=== PATIENT | male | born 1965 | race African-American/Black ===

== ENCOUNTER → 2017-08-31 | Outpatient (CLI) | payer OTHER | END | disposition home or self-care (01) | LOC: LABWHC1 13:54 | PROVIDERS: ATTEND Nurse Practitioner Family | DX: N17.9 Acute kidney failure, unspecified (principal) | CPT/HCPCS: 36415; 82565 ==

== ENCOUNTER → 2017-09-18 | Outpatient (CLI) | payer OTHER ==
--- NOTE | 2017-09-19 00:10 | MR ---
EXAMINATION TYPE: MR pelvis wo/w con DATE OF EXAM: 09/18/2017 COMPARISON: NONE HISTORY: Pelvic pain CONTRAST: Standard multiplanar, multisequence MRI departmental protocol utilizing 9 mL intravenous Gadavist felice olinium contrast. FINDINGS: The proximal femurs and hip joints are intact. Sacroiliac joints appear normal. I see no fo jarred bone destruction. There is no evidence of a fracture. There is no free fluid in the pelvis. There is artifact obscuring detail on the left side of the pelvis. There is no evidence of a pelvic mass. Bladder distends smoothly. There is no evidence of a prostate mass. There is a 1.5 cm wedge-shaped area of increased signal on the T2 images on the anterior inferior asp ect of the L4 vertebral body. There is no significant loss of height. This could be mild bone edema. IMPRESSION: No evidence of pelvic mass. There is possible edema in the anterior L4 vertebral body that could rela te to a stress fracture. No evidence of a pelvic mass. A bone scan would be helpful for further evalu ation if a fracture is suspected..
== END | disposition home or self-care (01) ==
LOC: RADMRIMAIN 20:57
PROVIDERS: ATTEND Family Medicine
DX: R19.00 Intra-abdominal and pelvic swelling, mass and lump, unspecified site (principal)
CPT/HCPCS: 72197; A9581

== ENCOUNTER → 2017-09-23 | Outpatient (CLI) | payer OTHER ==
[2017-09-23 14:38] LABS: Anion Gap 9 mmol/L; Blood Urea Nitrogen 7 mg/dL (9-20); Carbon Dioxide 32 mmol/L (22-30); Chloride 103 mmol/L (98-107); Potassium 3.4 mmol/L (3.5-5.1); Sodium 144 mmol/L (137-145)
[2017-09-23 14:55] LABS: HCT 42.8 % (39.0-53.0); HGB 13.9 gm/dL (13.0-17.5); MCH 26.6 pg (25.0-35.0); MCHC 32.4 g/dL (31.0-37.0); MCV 82.1 fL (80.0-100.0); Mean Platelet Volume 6.7; Platelet Count 261 k/uL (150-450); RBC 5.22 m/uL (4.30-5.90); RDW 14.5 % (11.5-15.5); WBC 6.5 k/uL (3.8-10.6)
== END | disposition home or self-care (01) ==
LOC: LABPAT 13:54
PROVIDERS: ATTEND Internal Medicine Cardiovascular Disease
DX: Z01.812 Encounter for preprocedural laboratory examination (principal); R07.2 Precordial pain
CPT/HCPCS: 36415; 80051; 82565; 84520; 85027

== ENCOUNTER 2017-10-06 07:40 | Day surgery (SDC) | payer OTHER ==
[2017-10-05 13:14] VITALS: BMI 30.4
[~2017-10-06 07:40] MED LIST: ALPRAZolam 0.25 MG TAB PO PRN; ASPIRIN 325 MG TAB PO ONE; SODIUM CHLORIDE 0.9% 1,000 ML in EMPTY BAG 1 BAG IV ONE
[2017-10-06 08:01] VITALS: TEMP 98.4
[2017-10-06] MEDS ORDERED: LIDOCAINE 2% INJ 20 MG/ML (20 ML MDV) ONE (09:18)
[2017-10-06] MEDS ORDERED: MIDAZOLAM 2 MG/2 ML VIAL ONE (09:21)
[2017-10-06] MEDS ORDERED: MIDAZOLAM 2 MG/2 ML VIAL IV ONE (09:22)
[2017-10-06] MEDS ORDERED: LIDOCAINE 2% INJ 20 MG/ML SQ ONE (09:25)
[2017-10-06] MEDS ORDERED: IOPAMIDOL-370 125ML BTL INJ ONE (09:37)
[2017-10-06] MEDS ORDERED: RX INFO: IV CONTRAST WAS GIVEN 1 EACH MISC MISCELLANE PRN (09:39)
[2017-10-06] MEDS ORDERED: SODIUM CHLORIDE 0.9% 1,000 ML IV SCH (09:45)
--- NOTE | 2017-10-06 10:55 | CC ---
CARDIAC CATHETERIZATION REPORT INDICATION: Chest pain with abnormal stress test. PROCEDURE NOTE: After obtaining informed consent, left heart catheterization and coronary angiogram were performed via the right femoral artery using standard Amanda catheters. Patient tolerated the procedure well without any obvious immediate complications. A femoral angiogram was performed and Angio-Seal was deployed for hemostasis. Patient received moderate conscious sedation and the total sedation time was 13 minutes. FINDINGS: 1. HEMODYNAMICS: Left ventricular end-diastolic pressure is 12 to 14 mm, there is no significant gradient across aortic valve. 2. LEFT VENTRICULOGRAM: Left ventriculogram is not performed. 3. ANGIOGRAPHIC DATA: 4. Left main coronary artery is a normal-sized vessel and is free of stenosis. Divides into left anterior descending coronary artery and circumflex coronary artery. LAD and its branches, circumflex coronary artery and its branches are free of significant stenosis. LAD shows a mild atherosclerotic plaque in its mid to distal portion. 5. Right coronary artery is a large codominant vessel and is free of significant stenosis. LAD and circumflex coronary artery have almost separate origins. CONCLUSION: Mild nonobstructive coronary artery disease involving left anterior descending coronary artery. PLAN: Patient's chest discomfort and the abnormal stress test are probably noncardiac in origin and his management is going to be in the form of aggressive risk factor modification and continued medical therapy. MMODL / IJN: [id number] /
[2017-10-06 11:42] VITALS: PULSE 48
[2017-10-06 13:02] VITALS: BP 119/77; RESP 18
== END 2017-10-06 14:23 | disposition home or self-care (01) ==
LOC: CATHCVL 07:40
PROVIDERS: ATTEND Internal Medicine Cardiovascular Disease
DX: I25.10 Atherosclerotic heart disease of native coronary artery without angina pectoris (principal); I10 Essential (primary) hypertension; Z79.899 Other long term (current) drug therapy; Z79.82 Long term (current) use of aspirin
CPT/HCPCS: 93458; C1760; C1894; C1769; J2001; J2250; Q9967

== ENCOUNTER 2017-10-14 14:59 | Emergency (ER) | payer OTHER ==
--- NOTE | 2017-10-14 15:57 | ED ---
General Adult HPI - General Chief complaint: Recheck/Abnormal Lab/Rx Stated complaint: PAIN IN CATH SITE Time Seen by Provider: 10/14/17 15:07 Source: patient, RN notes reviewed Mode of arrival: ambulatory Limitations: no limitations - History of Present Illness Initial comments: 51-year-old male presents emergency Department chief complaint right inguinal/ groin pain. Patient states that he had a heart cath on 10/06/[address] Stock. Patient states that he developed pain today felt that he may have ordered on it but laid down to get him go away but it did not improve. Patient denies any increased swelling or discoloration. Denies any numbness or tingling to his leg. Patient states that he has not tried taking anything for the pain so far. Patient denies chest pain, shortness breath, nausea, vomiting, diarrhea, constipation, dysuria, fever or chills. He states that his heart cath had no significant findings. - Related Data Home Medications Medication Instructions Recorded Confirmed Lisinopril 40 mg PO DAILY 10/18/15 10/14/17 amLODIPine [Norvasc] 10 mg PO DAILY 10/18/15 10/14/17 Metoprolol Succinate (ER) [Toprol 100 mg PO DAILY 06/10/16 10/14/17 Xl] ALPRAZolam [Xanax] 0.5 mg PO Q8HR PRN 10/05/17 10/14/17 Atorvastatin [Lipitor] 10 mg PO DAILY 10/05/17 10/14/17 HYDROcodone/APAP 10-325MG [[place] 1 tab PO TID PRN 10/05/17 10/14/17 10-325] Pregabalin [Lyrica] 200 mg PO TID 10/05/17 10/14/17 Tamsulosin [Flomax] 0.4 mg PO DAILY 10/05/17 10/14/17 cloNIDine HCL [Catapres] 0.3 mg PO DAILY 10/14/17 10/14/17 Allergies Allergy/AdvReac Type Severity Reaction Status Date / Time No Known Allergies Allergy Verified 10/14/17 15:31 Review of Systems ROS Statement: Those systems with pertinent positive or pertinent negative responses have been documented in the HPI. ROS Other: All systems not noted in ROS Statement are negative. Past Medical History Past Medical History: Hypertension Additional Past Medical History / Comment(s): kidney stones History of Any Multi-Drug Resistant Organisms: None Reported Past Surgical History: Heart Catheterization, Orthopedic Surgery Additional Past Surgical History / Comment(s): Stress fracture in L4, heart cath in [id number] not place any stents. Past Psychological History: No Psychological Hx Reported Smoking Status: Never smoker General Exam Limitations: no limitations General appearance: alert, in no apparent distress Respiratory exam: Present: normal lung sounds bilaterally. Absent: respiratory distress, wheezes, rales, rhonchi, stridor Cardiovascular Exam: Present: regular rate, normal rhythm, normal heart sounds. Absent: systolic murmur, diastolic murmur, rubs, gallop, clicks GI/Abdominal exam: Present: soft, normal bowel sounds. Absent: distended, tenderness, guarding, rebound, rigid Extremities exam: Present: other (Right lower extremity pedal pulses equal bilaterally, there is no discoloration no change in warmth. There is tenderness to the right inguinal/groin region, normal pulses palpable no other areas of pulsatile mass) Course Vital Signs 10/14/17 15:01 Temperature 98.0 F Pulse Rate 89 Respiratory 18 Rate Blood Pressure 177/100 O2 Sat by Pulse 99 Oximetry Medical Decision Making - Medical Decision Making 51-year-old male present emergency department for right inguinal/groin pain. Patient had ultrasound to rule out pseudoaneurysm there is no evidence of pseudoaneurysm. Patient has good neurovascular status, equal pedal pulses. There is no bulging or obvious evidence of hernia at this time. Patient may have just strained his right groin. Patient will be discharged and he has a follow-up appointment tomorrow. Return parameters discussed. Disposition Clinical Impression: Rt groin pain Disposition: HOME SELF-CARE Condition: Stable Instructions: Groin Pain (ED) Additional Instructions: Please return to the Emergency Department if symptoms worsen or any other concerns. Referrals: Rishi Reyes MD [Primary Care Provider] - 1-2 days Time of Disposition: 16:38
--- NOTE | 2017-10-14 16:26 | US ---
EXAMINATION TYPE: US lower ext pseudo artery RT DATE OF EXAM: 10/14/2017 COMPARISON: NONE CLINICAL HISTORY: 51 year-old male with recent heart cath, rule out pseudoaneurysm. EXAM PERFORMED: Grayscale and color Doppler duplex imaging performed of the groin, post cardiac tom ter to assess for pseudoaneurysm. SIDE PERFORMED: Right Heart cath October 06, 2017. Technique: Color and Waveform Doppler performed to assess for the presence of pseudoaneurysm; FINDINGS: Salesperson Driver notes: There is NO ultrasound evidence of a pseudoaneurysm. There is NO evidence of AV shunting. There is NO fluid collection present. IMPRESSION: No sonographic evidence for pseudoaneurysm in the right groin.
[2017-10-14 17:03] VITALS: BP 142/95; PULSE 81; RESP 16; TEMP 97.9
== END 2017-10-14 17:12 | disposition home or self-care (01) ==
LOC: EC 14:59
DX: R10.31 Right lower quadrant pain (principal); I10 Essential (primary) hypertension; Z95.818 Presence of other cardiac implants and grafts; Z79.899 Other long term (current) drug therapy
CPT/HCPCS: 93975; 99283

== ENCOUNTER → 2017-11-25 | Outpatient (CLI) | payer OTHER ==
--- NOTE | 2017-11-25 16:32 | NM ---
EXAMINATION TYPE: NM bone scan whole body DATE OF EXAM: 11/25/2017 COMPARISON: Left knee dated 11/06/[address] pelvis 05/11/2017. HISTORY: M51.0, low back pain Delayed whole-body scanning was performed following the injection of 24.4 mCi Tc 99m MDP. Images acq uired 4 hours post injection. FINDINGS: Multiple small foci of radiotracer uptake present over the left groin region are possibly due to urin e contamination. Soft tissue uptake otherwise appears normal. Uptake within the feet, knees, hands, w rists, elbows, and shoulders, sternoclavicular joints is likely degenerative. No areas of uptake sugg esting metastatic disease. Uptake in the maxillary and mandible may be due to periodontal disease. Up take in the pubic symphysis may correlate to old trauma. IMPRESSION: Probable degenerative changes.
== END | disposition home or self-care (01) ==
LOC: RADNMMAIN 10:05
PROVIDERS: ATTEND Family Medicine
DX: M51.06 Intervertebral disc disorders with myelopathy, lumbar region (principal)
CPT/HCPCS: 78306; A9503

== ENCOUNTER → 2017-11-30 | Outpatient (CLI) | payer OTHER ==
[~2017-11-30] MED LIST changes: -ALPRAZolam 0.25 MG TAB PO PRN; -ASPIRIN 325 MG TAB PO ONE; +DIPH,PERTUS(ACELL)TETVAC-LF 0.5 ML VIAL IM ONE; -SODIUM CHLORIDE 0.9% 1,000 ML in EMPTY BAG 1 BAG IV ONE
[2017-11-30 12:17] VITALS: BP 157/97; PULSE 57; RESP 16; TEMP 98.2
== END | disposition home or self-care (01) ==
LOC: PROCWHC3 11:30
PROVIDERS: ATTEND Family Medicine
DX: Z23 Encounter for immunization (principal)
CPT/HCPCS: 90715; 96372

== ENCOUNTER → 2017-11-30 | Outpatient (CLI) | payer OTHER ==
[2017-11-30 11:37] LABS: Basophils % (A) 1 %; Eosinophils # (A) 0.3 k/uL (0-0.7); Eosinophils % (A) 5 %; HCT 41.1 % (39.0-53.0); HGB 13.2 gm/dL (13.0-17.5); Lymphocytes # (A) 2.3 k/uL (1.0-4.8); Lymphocytes % (A) 40 %; MCH 26.2 pg (25.0-35.0); MCHC 32.1 g/dL (31.0-37.0); MCV 81.6 fL (80.0-100.0); Mean Platelet Volume 6.4; Monocytes # (A) 0.4 k/uL (0-1.0); Monocytes % (A) 6 %; Neutrophils # (A) 2.7 k/uL (1.3-7.7); Neutrophils % (A) 47 %; Platelet Count 226 k/uL (150-450); RBC 5.03 m/uL (4.30-5.90); RDW 14.3 % (11.5-15.5); WBC 5.8 k/uL (3.8-10.6)
[2017-11-30 11:58] LABS: ALT 39 U/L (21-72); AST 35 U/L (17-59); Alkaline Phosphatase 47 U/L (38-126); Anion Gap 10 mmol/L; Blood Urea Nitrogen 9 mg/dL (9-20); Calcium 9.3 mg/dL (8.4-10.2); Carbon Dioxide 32 mmol/L (22-30); Chloride 102 mmol/L (98-107); Cholesterol 139 mg/dL (<200); Glucose 105 mg/dL (74-99); HDL Cholesterol 47 mg/dL (40-60); LDL Cholesterol,Calculated 68 mg/dL (0-99); Potassium 3.5 mmol/L (3.5-5.1); Sodium 144 mmol/L (137-145); Total Bilirubin 0.3 mg/dL (0.2-1.3); Total Protein 6.8 g/dL (6.3-8.2); Triglycerides 121 mg/dL (<150)
[2017-11-30 17:12] LABS: Hepatitis B Core IgM Non-Reactive (Non-Reactive)
[2017-11-30 17:13] LABS: Hepatitis A Antibody IgM Non-Reactive (Non-Reactive)
[2017-11-30 18:22] LABS: HIV AB P24 Non-Reactive (Non-Reactive); HIV P24 AG Non-Reactive (Non-Reactive)
[2017-12-01 15:21] LABS: C. trachomatis,PCR Negative (Neg,Equiv); Chlamydia trachomatis Source Urine; N. gonorrhoeae,PCR Negative (Neg,Equiv); Neisseria Source Urine
== END | disposition home or self-care (01) ==
LOC: LABWHC1 10:54
PROVIDERS: ATTEND Family Medicine
DX: E78.5 Hyperlipidemia, unspecified (principal); I10 Essential (primary) hypertension; E03.9 Hypothyroidism, unspecified; D64.9 Anemia, unspecified; Z20.2 Contact with and (suspected) exposure to infections with a predominantly sexual mode of transmission
CPT/HCPCS: 36415; 80053; 80061; 80074; 84443; 85025; 86694; 86695; 86696; 86780; 87390; 87491; 87591

== ENCOUNTER → 2018-01-25 | Outpatient (CLI) | payer OTHER ==
[2018-01-25 19:38] LABS: Rheumatoid Factor 10 IU/mL (0-15)
== END | disposition home or self-care (01) ==
LOC: LABWHC1 12:19
PROVIDERS: ATTEND Nurse Practitioner Family
DX: M25.50 Pain in unspecified joint (principal)
CPT/HCPCS: 36415; 85652; 86038; 86431

== ENCOUNTER → 2018-02-09 | Outpatient (CLI) | payer OTHER ==
--- NOTE | 2018-02-09 19:18 | CT ---
EXAMINATION TYPE: CT chest wo con DATE OF EXAM: 02/09/2018 COMPARISON: None HISTORY: Shortness of breath, cough X [address] DLP: 397.1 mGycm, Automated exposure control for dose reduction was used. CONTRAST: Performed injected with 0 mL of Isovue 300. TECHNIQUE: Axial images were obtained at 5 mm thick sections. Reconstructed images are reviewed on [employer] computer in the coronal plane. FINDINGS: Portion of the thyroid visualized is normal. There is a 1.0 cm lymph node in the left axill a. No suspicious lung nodules or focal infiltrates are present. No enlarged mediastinal or hilar adenopathy is evident. The ascending aorta diameter at the level o f the main pulmonary artery is 3.7 cm. The main pulmonary artery diameter at the bifurcation is 2.[address] sections are obtained through the upper abdomen. Abdomen is essentially unremarkable. IMPRESSIONS: 1. Normal Chest CT.
== END | disposition home or self-care (01) ==
LOC: RADCTMAIN 07:13
PROVIDERS: ATTEND Family Medicine
DX: R06.02 Shortness of breath (principal)
CPT/HCPCS: 71250

== ENCOUNTER 2018-08-25 20:59 | Emergency (ER) | payer OTHER ==
--- NOTE | 2018-08-25 21:33 | ED ---
Back Pain [facility] - General Chief Complaint: Back Pain/Injury Stated Complaint: Back injury Time Seen by Provider: 08/25/18 21:11 Source: patient Limitations: no limitations - History of Present Illness Initial Comments: This patient is a 52-year-old man who states that yesterday in the early afternoon he was helping to lift some rales floor and felt a pop in his low back. He states that since that time he has been having some right-sided low back pain. He describes it as an aching or catching sensation typically worse when he tries to straighten up or stand. He has not noted relieving factors other than it may be a little bit better with the Lyrica that he takes. He rates it constant, about 6 out of 10. Patient has not had any associated neurologic symptoms. No changes in bladder or bowel function. No weakness or numbness. No saddle anesthesia. MD Complaint: back pain Onset/Timin -: hour(s) Similar Symptoms Previously: No Place: other Radiation: none Severity: moderate Severity scale (1-10): 6 Quality: aching Consistency: constant Improves With: none Worsens With: other (Straitening up) Context: while lifting Associated Symptoms: denies other symptoms Treatments Prior to Arrival: other (Lyrica) - Related Data Home Medications Medication Instructions Recorded Confirmed Lisinopril 40 mg PO DAILY 10/18/15 08/25/18 amLODIPine [Norvasc] 10 mg PO DAILY 10/18/15 08/25/18 Metoprolol Succinate (ER) [Toprol 100 mg PO DAILY 06/10/16 08/25/18 Xl] Atorvastatin [Lipitor] 10 mg PO DAILY 10/05/17 08/25/18 HYDROcodone/APAP 10-325MG [[place] 1 tab PO TID PRN 10/05/17 08/25/18 10-325] Pregabalin [Lyrica] 200 mg PO TID 10/05/17 08/25/18 Tamsulosin [Flomax] 0.4 mg PO DAILY 10/05/17 08/25/18 cloNIDine HCL [Catapres] 0.3 mg PO DAILY 10/14/17 08/25/18 Cyclobenzaprine [Flexeril] 10 mg PO HS 11/30/17 08/25/18 Cetirizine HCl [Zyrtec] 10 mg PO DAILY 08/25/18 08/25/18 Previous Rx's Medication Instructions Recorded Ibuprofen 800 mg PO TID #20 tablet 08/25/18 Methocarbamol [Robaxin-750] 750 mg PO TID PRN #30 tablet 08/25/18 Allergies Allergy/AdvReac Type Severity Reaction Status Date / Time No Known Allergies Allergy Verified 08/25/18 21:48 Review of Systems ROS Statement: Those systems with pertinent positive or pertinent negative responses have been documented in the HPI. ROS Other: All systems not noted in ROS Statement are negative. Constitutional: Denies: fever, chills, weakness Respiratory: Denies: cough, dyspnea Cardiovascular: Denies: chest pain, palpitations, edema Gastrointestinal: Denies: abdominal pain, vomiting, diarrhea, constipation Genitourinary: Denies: dysuria, testicular pain Musculoskeletal: Reports: as per HPI, back pain Skin: Denies: rash Neurological: Denies: weakness, numbness, paresthesias Past Medical History Past Medical History: Hypertension Additional Past Medical History / Comment(s): kidney stones History of Any Multi-Drug Resistant Organisms: None Reported Past Surgical History: Heart Catheterization, Orthopedic Surgery Additional Past Surgical History / Comment(s): Stress fracture in L4, heart cath in [id number] not place any stents. Past Psychological History: No Psychological Hx Reported Smoking Status: Never smoker Past Alcohol Use History: None Reported Past Drug Use History: None Reported General Exam Limitations: no limitations General appearance: alert, in no apparent distress Head exam: Present: atraumatic Neck exam: Present: normal inspection, full ROM Respiratory exam: Present: normal lung sounds bilaterally. Absent: respiratory distress, wheezes, rales, rhonchi, stridor Cardiovascular Exam: Present: regular rate, normal rhythm, normal heart sounds. Absent: systolic murmur, diastolic murmur, rubs, gallop GI/Abdominal exam: Present: soft. Absent: distended, tenderness, guarding, rebound, pulsatile mass Extremities exam: Present: normal inspection, normal capillary refill. Absent: pedal edema, calf tenderness Back exam: Present: normal inspection, paraspinal tenderness (Right lumbar). Absent: CVA tenderness (R), CVA tenderness (L), vertebral tenderness Neurological exam: Present: alert, normal gait, reflexes normal Skin exam: Present: warm, dry, intact, normal color. Absent: rash Course Vital Signs 08/25/18 21:01 Temperature 98.2 F Pulse Rate 80 Respiratory 20 Rate Blood Pressure 134/77 O2 Sat by Pulse 100 Oximetry Disposition Clinical Impression: Strain of lumbar region Disposition: HOME SELF-CARE Condition: Fair Instructions (If sedation given, give patient instructions): Acute Low Back Pain (ED) Prescriptions: Ibuprofen 800 mg PO TID #20 tablet Methocarbamol [Robaxin-750] 750 mg PO TID PRN #30 tablet PRN Reason: pain Is patient prescribed a controlled substance at d/c from ED?: No Referrals: Rishi Reyes MD [Primary Care Provider] - 1-2 days
--- NOTE | 2018-08-25 22:00 | XR ---
EXAMINATION TYPE: XR lumbar spine 2 or 3V DATE OF EXAM: 08/25/2018 COMPARISON: NONE HISTORY: Back pain TECHNIQUE: 3 views FINDINGS: There is narrowing at L4-5 disc space with spurring. I see no fracture. Sacroiliac joints a re intact. There is no compression fracture. IMPRESSION: Mild spondylosis at L4-5. No fracture seen.
[2018-08-25 23:07] VITALS: BP 128/91; PULSE 70; RESP 17; TEMP 97.6
== END 2018-08-25 23:07 | disposition home or self-care (01) ==
LOC: EC 20:59
DX: S39.012A Strain of muscle, fascia and tendon of lower back, initial encounter (principal); I10 Essential (primary) hypertension; Z95.818 Presence of other cardiac implants and grafts; Z87.81 Personal history of (healed) traumatic fracture; Z79.899 Other long term (current) drug therapy; X50.0XXA Overexertion from strenuous movement or load, initial encounter; Y93.89 Activity, other specified
CPT/HCPCS: 72100; 99283

== ENCOUNTER → 2018-09-09 | Outpatient (CLI) | payer OTHER ==
[2018-09-09 14:20] LABS: Basophils % (A) 1 %; Eosinophils # (A) 0.5 k/uL (0-0.7); Eosinophils % (A) 10 %; HCT 42.3 % (39.0-53.0); HGB 13.5 gm/dL (13.0-17.5); Lymphocytes # (A) 1.8 k/uL (1.0-4.8); Lymphocytes % (A) 40 %; MCH 26.6 pg (25.0-35.0); MCHC 31.8 g/dL (31.0-37.0); MCV 83.7 fL (80.0-100.0); Monocytes # (A) 0.2 k/uL (0-1.0); Monocytes % (A) 6 %; Neutrophils # (A) 1.8 k/uL (1.3-7.7); Neutrophils % (A) 40 %; Platelet Count 242 k/uL (150-450); RBC 5.05 m/uL (4.30-5.90); RDW 14.4 % (11.5-15.5); WBC 4.4 k/uL (3.8-10.6)
[2018-09-09 18:47] LABS: Albumin 4.2 g/dL (3.80-4.90); Albumin/Globulin Ratio 1.62 (1.60-3.17); Anion Gap 6.1 mmol/L (4.00-12.00); Calcium 8.7 mg/dL (8.7-10.3); Carbon Dioxide 27.9 mmol/L (21.6-31.8); Globulin 2.6 g/dL (1.6-3.3); Potassium 3.9 mmol/L (3.5-5.5); Total Bilirubin 0.4 mg/dL (0.3-1.2); Total Protein 6.8 g/dL (6.2-8.2)
== END ==
LOC: LABWHC1 13:46
PROVIDERS: ATTEND Family Medicine
DX: E78.5 Hyperlipidemia, unspecified (principal); I10 Essential (primary) hypertension; E03.9 Hypothyroidism, unspecified; D64.9 Anemia, unspecified; N41.9 Inflammatory disease of prostate, unspecified
CPT/HCPCS: 36415; 80053; 80061; 84153; 84443; 85025

== ENCOUNTER → 2018-09-16 | Outpatient (CLI) | payer OTHER ==
--- NOTE | 2018-09-17 04:01 | MR ---
EXAMINATION TYPE: MR foot LT wo/w con DATE OF EXAM: 09/16/2018 COMPARISON: None HISTORY: plantar fascial fibromatosis, left foot CONTRAST: Standard multiplanar, multisequence MRI departmental protocol utilizing 10 mL intravenous Gadavist ga dolinium contrast. FINDINGS: The metatarsals appear intact. I see no focal bone destruction. There is a marker on the me dial aspect of the midfoot in the area of concern on the plantar aspect. There is a 3 x 1 cm area of thickening of the plantar fascia on the medial aspect of the midfoot. This has intermediate signal on the T1 images. The contrast images show mild pathologic enhancement. There is no significant fluid c omponent of the mass. I see no focal bony destructive process. There is slight increased signal in the soft tissues around the fourth and fifth MP joints. This coul d relate to stress related phenomenon and abnormal gait. IMPRESSION: There is an elongated soft tissue enhancing solid mass on the plantar aspect of the medial midfoot wi th benign shape. This is consistent with fibromatosis. Mild edema on the fourth and fifth MP joint region consistent with altered gait.
== END ==
LOC: RADMRIMAIN 08:51
PROVIDERS: ATTEND Podiatrist Foot & Ankle Surgery
DX: M72.2 Plantar fascial fibromatosis (principal); M25.474 Effusion, right foot
CPT/HCPCS: 73720; A9585

== ENCOUNTER → 2018-10-08 | Outpatient (CLI) | payer OTHER ==
--- NOTE | 2018-10-10 10:20 | MR ---
EXAMINATION TYPE: MR lumbar spine wo/w con DATE OF EXAM: 10/08/2018 COMPARISON: NONE HISTORY: Back pain x 2 years TECHNIQUE: T1 and T2 axial and sagittal images of the lumbar spine are submitted. FINDINGS: There is no abnormal signal seen within the visualized spinal cord or paraspinal soft tissu es. At L1-2 there is no disc herniation or canal stenosis. No foraminal encroachment At L2-3 there is no disc herniation or canal stenosis. No foraminal encroachment. Mild facet arthropa thy. At L3-4 there is right paracentral disc bulging extending laterally to the right. No neural foraminal encroachment or canal stenosis. Very mild effacement of thecal sac. At L4-5 there is degenerative disc disease with Schmorl's node central broad-based disc protrusion wi th mild effacement of thecal sac but no central stenosis. Mild right-sided foraminal encroachment. Fa cet arthropathy. At L5-S1 there is facet arthropathy but no canal stenosis or foraminal encroachment. No disc herniati on. IMPRESSION: 1. Degenerative disc disease L4-L5 with central disc protrusion and mild right-sided foraminal encroa chment. 2. Mild right paracentral lateral disc bulging or small protrusion L3-L4. 3. Multilevel mild facet arthropathy.
== END ==
LOC: RADMRIMAIN 20:54
PROVIDERS: ATTEND Family Medicine
DX: M51.06 Intervertebral disc disorders with myelopathy, lumbar region (principal); M46.86 Other specified inflammatory spondylopathies, lumbar region
CPT/HCPCS: 72158; A9585

== ENCOUNTER → 2018-10-26 | Outpatient (CLI) | payer OTHER ==
[2018-10-26 16:22] LABS: Basophils % (A) 0 %; Eosinophils # (A) 0.4 k/uL (0-0.7); Eosinophils % (A) 6 %; HCT 43.8 % (39.0-53.0); HGB 13.8 gm/dL (13.0-17.5); Lymphocytes # (A) 1.8 k/uL (1.0-4.8); Lymphocytes % (A) 28 %; MCH 26.4 pg (25.0-35.0); MCHC 31.4 g/dL (31.0-37.0); MCV 83.9 fL (80.0-100.0); Mean Platelet Volume 6.6; Monocytes # (A) 0.3 k/uL (0-1.0); Monocytes % (A) 5 %; Neutrophils # (A) 3.8 k/uL (1.3-7.7); Neutrophils % (A) 59 %; Platelet Count 288 k/uL (150-450); RBC 5.22 m/uL (4.30-5.90); RDW 15.1 % (11.5-15.5); WBC 6.5 k/uL (3.8-10.6)
[2018-10-27 01:03] LABS: Albumin 4.4 g/dL (3.80-4.90); Albumin/Globulin Ratio 1.91 (1.60-3.17); Anion Gap 12.4 mmol/L (4.00-12.00); Calcium 9.4 mg/dL (8.7-10.3); Carbon Dioxide 29.6 mmol/L (21.6-31.8); Globulin 2.3 g/dL (1.6-3.3); LDL Cholesterol,Calculated 89.2 mg/dL (0.0-131.0); Potassium 3.5 mmol/L (3.5-5.5); Total Bilirubin 0.6 mg/dL (0.2-1.2); Total Protein 6.7 g/dL (6.2-8.2); VLDL Calculation 16.8 mg/dL (5.00-40.00)
[2018-10-27 01:05] LABS: Hepatitis A Antibody IgM Non-Reactive (Non-Reactive); Hepatitis B Core IgM Non-Reactive (Non-Reactive)
[2018-10-27 01:48] LABS: HIV 1 AB Non-Reactive (Non-Reactive); HIV AB P24 Non-Reactive (Non-Reactive); HIV P24 AG Non-Reactive (Non-Reactive)
[2018-10-27 07:03] LABS: Herpes simplex IgG I Ab 2.92 (< or = 0.90)
[2018-10-27 14:26] LABS: C. trachomatis,PCR Negative (Neg,Equiv); Chlamydia trachomatis Source Urine; N. gonorrhoeae,PCR Negative (Neg,Equiv); Neisseria Source Urine
== END ==
LOC: LABWHC1 14:48
PROVIDERS: ATTEND Nurse Practitioner Family
DX: E78.5 Hyperlipidemia, unspecified (principal); I10 Essential (primary) hypertension; E03.9 Hypothyroidism, unspecified; D64.9 Anemia, unspecified; N41.9 Inflammatory disease of prostate, unspecified; E29.1 Testicular hypofunction; Z20.2 Contact with and (suspected) exposure to infections with a predominantly sexual mode of transmission
CPT/HCPCS: 36415; 80053; 80061; 80074; 82040; 84153; 84270; 84403; 84443; 85025; 86694; 86695; 86696; 86780; 87390; 87491; 87591

== ENCOUNTER → 2018-12-03 | Outpatient (CLI) | payer OTHER ==
--- NOTE | 2018-12-03 10:16 | MR ---
EXAMINATION TYPE: MR knee LT wo con DATE OF EXAM: 12/03/2018 COMPARISON: Plain film 11/17/2018 HISTORY: Left knee pain TECHNIQUE: Multiplanar, multisequence imaging of the knee is performed without IV contrast. FINDINGS: MEDIAL MENISCUS: Posterior horn of the medial meniscus shows some increased signal. Findings may be d egenerative. A clear communication with the articular surface is not identified with certainty LATERAL MENISCUS: Anterior and posterior horns are intact without tear. CRUCIATE LIGAMENTS: The anterior and posterior cruciate ligaments are intact and unremarkable. COLLATERAL LIGAMENTS: The medial collateral ligament and lateral collateral ligament complex are inta ct and increased signal in the popliteus tendon suggests tendinosis. EXTENSOR MECHANISM: Quadriceps tendon is somewhat irregular in contour and shows some increased signa l possibly due to some degenerative signal EFFUSION: Minimal effusion POPLITEAL CYST: No popliteal/arreguin cyst. TRICOMPARTMENT SPACES: Joint space loss is present in the patellofemoral joint and medial compartment CARTILAGE: Grade III to IV chondromalacia of the posterior patella, grade 2-3 chondromalacia in the m edial compartment, lateral compartment BONE MARROW SIGNAL: Subchondral geode formations are present at the patellofemoral joint, medial femo ral condyle and proximal tibia posteriorly OTHER: No additional significant abnormality is appreciated. IMPRESSION: There are changes of osteoarthritis as described.
== END | disposition home or self-care (01) ==
LOC: RADMRIMAIN 08:28
PROVIDERS: ATTEND Orthopaedic Surgery
DX: M17.12 Unilateral primary osteoarthritis, left knee (principal)

== ENCOUNTER → 2018-12-30 | Outpatient (CLI) | payer OTHER ==
--- NOTE | 2018-12-30 20:44 | CONS ---
CONSULTATION DATE OF SERVICE: 12/30/2018 53-year-old gentleman who [facility] for [facility], witnessed episodes of stopped breathing during the sleep. Abnormal movements at night with his arms and kicking his legs. HISTORY OF PRESENT ILLNESS SLEEP WAKE EVALUATION: SLEEP SCHEDULE: The patient usually goes to bed around 5 a.m. and sleeps until about 8:30 to 10:00 am. FALLING ASLEEP: Takes for him a long time to fall asleep. He has TV set in bedroom. DURING SLEEP: He sleeps in different position with loud snoring, witnessed episodes of stopped breathing during the sleep. Awakenings from sleep with choking, sleep talking, sweating, gasping for air. According to his girlfriend, he has a significant amount of kicking at night and he also has out of dream movements of his arms. He wakes up from sleep up to 5 times with nocturia. DURING THE DAY/SLEEP WAKE EVALUATION: During the day, the patient feels sleepiness. O'Brien Sleepiness Scale significantly increased to 19. According to girlfriend sometimes possibly dreaming during naps. No history of sleep paralysis or cataplexy or hypnagogic hallucinations. PAST MEDICAL HISTORY: Positive for hypertension, hyperlipidemia, several back problems. 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 Multiple groin lymph nodes removed from right side, benign. SOCIAL HISTORY: Negative for smoking or using alcohol. CURRENT MEDICATIONS: Metoprolol, Clonidine, amlodipine, lisinopril, atorvastatin, tamsulosin, Cetirizine, Lyrica, benazepril, Sherrill. FAMILY HISTORY: Hypertension, heart problems, hyperlipidemia, arthritis, asthma, cancer, emphysema, acid reflux, diabetes. REVIEW OF SYSTEMS: Multiple awakenings from sleep, sleepiness during the day. Pain in the back. PHYSICAL EXAMINATION: During physical exam a 53-year-old gentleman without distress. BP 166/96, HR 68, RR 16, height 5 feet 7 inches, weight 207 pounds. Body mass index 31.9, temperature 97.7, oxygen saturation at room air 97%. Oropharynx: Extremely low position of soft palate. Mallampati 4. Wide neck 17 and 1/2 inches in circumference. Neck Supple, no JVD. Thyroid is not palpable. LUNGS Clear to percussion and to auscultation. Good air exchange. No wheezing or rhonchi. HEART S1, S2 regular. No murmurs, gallops, or rubs. ABDOMEN: Slightly obese. Soft and nontender. Bowel sounds are present. No organomegaly appreciated. EXTREMITIES No clubbing or cyanosis. ASSESSMENT COUNSELOR Awake, alert, and oriented X3. Cranial nerves 2 to 7 intact. There is no fasciculation or atrophy noted. No focal deficits observed. IMPRESSION: 1. Loud snoring, witnessed episodes of stopped breathing, extremely low position of soft palate, Mallampati IV, wide neck, significant excessive daytime sleepiness, obstructive sleep apnea-hypopnea syndrome. 2. Positive history of kicking at night periodic limb movements. 3. Sleep talking. 4. Episodes of out of dream movements with arms, possibly REM sleep behavior disorder. 5. Significant excessive daytime sleepiness. O'Brien Sleepiness Scale is 19 dictate necessity to include hypersomnia and narcolepsy in the differential diagnosis. 6. Hypertension. 7. Hyperlipidemia. 8. Back problems. 9. Status post lymph nodes in the groin on the right side removed, benign. 10.Status post several cardiac cath negative for coronary artery disease. 11.Status post left knee fatty tumor removed. PLAN: 1. Polysomnography for evaluation of patient's breathing during sleep. 2. CPAP/BiPAP titration if sleep study confirms obstructive sleep apnea-hypopnea syndrome. 3. Preferable position during sleep on the side. 4. No driving if patient feels any sleepiness. 5. I will see patient for follow up visit to explain results of testing and following plan. 6. Patient is a candidate for multiple sleep latency test if sleep study will be negative for obstructive sleep apnea-hypopnea syndrome, but I believe he has sleep apnea. Thank you very much for referring this patient for consultation. Sincerely. Juan Guerrero MD, PhD, FAASM Diplomat of [employer] [facility] MMODL / DONN: [id number] /
== END | disposition home or self-care (01) ==
LOC: SLEEP 15:15
PROVIDERS: ATTEND Internal Medicine
DX: G47.33 Obstructive sleep apnea (adult) (pediatric) (principal); I10 Essential (primary) hypertension; E78.5 Hyperlipidemia, unspecified; M53.9 Dorsopathy, unspecified; Z98.890 Other specified postprocedural states; Z79.899 Other long term (current) drug therapy
CPT/HCPCS: 99211

== ENCOUNTER → 2019-01-20 | Outpatient (CLI) | payer OTHER ==
--- NOTE | 2019-01-20 14:57 | XR ---
EXAMINATION TYPE: XR shoulder complete BILAT DATE OF EXAM: 01/20/2019 COMPARISON: NONE HISTORY: Pain TECHNIQUE: Three views are submitted. FINDINGS: The osseous structures are intact. There is no acute fracture or dislocation. Arthropathy of the AC joints bilaterally.. IMPRESSION: 1. Bilateral AC joint arthropathy. Correlate for chronic rotator cuff disease
== END | disposition home or self-care (01) ==
LOC: RADXRMAIN 14:26
PROVIDERS: ATTEND Family Medicine
DX: M12.812 Other specific arthropathies, not elsewhere classified, left shoulder (principal); M12.811 Other specific arthropathies, not elsewhere classified, right shoulder

== ENCOUNTER → 2020-02-02 | Outpatient (CLI) | payer OTHER ==
--- NOTE | 2020-02-02 16:10 | XR ---
EXAMINATION TYPE: XR cervical spine comp DATE OF EXAM: 02/02/2020 TECHNIQUE: Frontal, lateral, oblique, and open mouth view of the cervical spine are obtained. HISTORY: M47.22 radiculopathy COMPARISON: None FINDINGS: The cervical spine is visualized in its entirety from C1 thru the top of T1 level. There i s straightening of the cervical lordosis. There is no evidence of fracture or dislocation. There are marked anterior osteophytes diffusely. Joint space narrowing seen at C4-C5, C5-C6, and C6-C7. Multile al uncovertebral hypertrophy. The pre-vertebral soft tissue appears within normal limits. Neural for carmita demonstrate varying degrees of bony encroachment bilaterally, worst at C5-C6 bilaterally. The d ens and lateral masses are within normal limits on the open mouth view. IMPRESSION: 1. No acute fracture or dislocation is seen in the cervical spine. 2. Marked multilevel degenerative changes.
== END | disposition home or self-care (01) ==
LOC: RADXRMAIN 14:14
PROVIDERS: ATTEND Family Medicine
DX: M47.22 Other spondylosis with radiculopathy, cervical region (principal)
CPT/HCPCS: 72050

== ENCOUNTER → 2020-03-26 | Outpatient (CLI) | payer OTHER ==
--- NOTE | 2020-03-26 15:58 | XR ---
EXAMINATION TYPE: XR elbow complete bilateral DATE OF EXAM: 03/26/2020 CLINICAL HISTORY: Chronic bilateral elbow pain, left greater than right. Limited range of motion. TECHNIQUE: Frontal, lateral and oblique images of the bilateral elbows are obtained. COMPARISON: None FINDINGS: There is no acute fracture/dislocation evident in the bilateral elbows. The right elbow de monstrate lateral and medial epicondylar enthesophytes, and large olecranon spur. The left elbow demo nstrates lateral medial epicondylar enthesophytes, large olecranon spur, and degenerative change of t he anterior joint. No abnormal fat pad signs are seen. The overlying soft tissue appears unremarkabl e. IMPRESSION: 1. No acute fracture or dislocation in the bilateral elbows. 2. Enthesopathy of the elbows involving the medial and lateral epicondyles and olecranon process bila terally. There is also osteoarthritic change of the anterior elbow joint on the left.
== END | disposition home or self-care (01) ==
LOC: RAD 14:35
PROVIDERS: ATTEND Family Medicine
DX: M77.8 Other enthesopathies, not elsewhere classified (principal); M19.022 Primary osteoarthritis, left elbow

== ENCOUNTER → 2021-05-31 | Outpatient (CLI) | payer OTHER ==
--- NOTE | 2021-05-31 15:37 | XR ---
Left elbow HISTORY: Pain, limited range of motion 3 views of the left elbow Joint space loss is present especially lateral compartment. Subchondral eburnation and geode formatio n is present. Bone mineralization is otherwise maintained. Marginal spurring present along the radial head as well as medial compartment. There may be a joint effusion. There is an enthesophyte at the i nsertion of the triceps tendon. No fracture or dislocation. There is soft tissue swelling present. IMPRESSION: Osteoarthritis.
== END | disposition home or self-care (01) ==
LOC: LABWHC1 14:25
PROVIDERS: ATTEND Student in an Organized Health Care Education/Training Program
DX: M19.022 Primary osteoarthritis, left elbow (principal); I10 Essential (primary) hypertension; R00.1 Bradycardia, unspecified; R94.31 Abnormal electrocardiogram [ECG] [EKG]
CPT/HCPCS: 36415; 93005

== ENCOUNTER → 2021-06-18 | Outpatient (CLI) | payer OTHER ==
--- NOTE | 2021-06-19 10:00 | ECHOF ---
Referral Reason:Edema, Dyspnea MEASUREMENTS -------- HEIGHT: 175.3 cm WEIGHT: 97.5 kg BP: IVSd: 1.4 cm (0.6 - 1.1) LVIDd: 4.2 cm (3.9 - 5.3) LVPWd: 1.5 cm (0.6 - 1.1) EDV(Teich): 80 ml IVSs: 1.6 cm LVIDs: 3.1 cm LVPWs: 1.8 cm %IVS Thck: 14 % ESV(Teich): 39 ml EF(Teich): 51 % %FS: 26 % SV(Teich): 41 ml LA Diam: 3.7 cm (2.7 - 3.8) LALs A4C: 6.6 cm LAAs A4C: 27.5 cm LAESV A-L A4C: 97 ml LAESV MOD A4C: 93 ml LALs A2C: 5.8 cm LAAs A2C: 24.8 cm LAESV A-L A2C: 91 ml LAESV MOD A2C: 86 ml LAESV(A-L): 100 ml LAESV Index (A-L): 47.06 ml/m Ao Diam: 2.7 cm (2.0 - 3.7) LA Diam: 3.5 cm (2.7 - 3.8) AV Cusp: 1.8 cm (1.5 - 2.6) EPSS: 0.3 cm MV E Matthew: 0.49 m/s MV DecT: 200 ms MV Dec [place]: 2.4 m/s MV A Matthew: 0.65 m/s MV E/A Ratio: 0.75 MV PHT: 58 ms AV Vmax: 1.64 m/s AV maxP.70 mmHg TR Vmax: 2.62 m/s TR maxP.43 mmHg RAP: 5.00 mmHg RVSP: 32.43 mmHg MV EF SLOPE: 101.03 mm/s (70 - 150) MV EXCURSION: 16.70 mm (> 18.000) FINDINGS -------- Sinus rhythm. This was a technically good study. The left ventricular size is normal. There is moderate concentric left ventricular hypertrophy. O verall left ventricular systolic function is normal with, an EF between 55 - 60 %. The right ventricle is normal in size. Normal LA size by volume 22+/-6 ml/m2. The right atrial size is normal. The aortic valve is trileaflet, and appears structurally normal. No aortic stenosis or regurgitation. Mild mitral regurgitation is present. Mild tricuspid regurgitation present. Right ventricular systolic pressure is normal at < 35 mmHg. There is no pulmonic regurgitation present. There is no pericardial effusion. CONCLUSIONS -------- 1. The left ventricular size is normal. 2. There is moderate concentric left ventricular hypertrophy. 3. Overall left ventricular systolic function is normal with, an EF between 55 - 60 %. 4. The right ventricle is normal in size. 5. Normal LA size by volume 22+/-6 ml/m2. 6. The right atrial size is normal. 7. The aortic valve is trileaflet, and appears structurally normal. No aortic stenosis or regurgitati on. 8. Mild mitral regurgitation is present. 9. Mild tricuspid regurgitation present. 10. There is no pericardial effusion. [employer]: Yazmin Sanchez RDCS
== END | disposition home or self-care (01) ==
LOC: RADECHMAIN 12:58
PROVIDERS: ATTEND Student in an Organized Health Care Education/Training Program
DX: I34.0 Nonrheumatic mitral (valve) insufficiency (principal); I07.1 Rheumatic tricuspid insufficiency
CPT/HCPCS: 93306

== ENCOUNTER 2023-10-16 12:55 | Day surgery (SDC) | payer OTHER ==
[2023-10-16] MEDS ORDERED: LACTATED RINGERS 1,000 ML IV SCH (13:32)
[2023-10-16] MEDS ORDERED: LIDOCAINE 1% (10MG/ML) FOR IV START INTRADERMA PRN (13:32)
[2023-10-16] MEDS: SODIUM CHLORIDE 0.9% 500 ML 500 ML IV ONE (13:50)
[2023-10-16 13:56] LABS: Glucose,Whole Blood 88 mg/dL (70-110)
[2023-10-16 14:04] LABS: Basophils % (A) 1 %; Eosinophils # (A) 0.2 k/uL (0-0.7); Eosinophils % (A) 3 %; HCT 44.6 % (39.0-53.0); Lymphocytes # (A) 1.5 k/uL (1.0-4.8); Lymphocytes % (A) 23 %; MCH 26.9 pg (25.0-35.0); MCHC 31.4 g/dL (31.0-37.0); MCV 85.5 fL (80.0-100.0); Mean Platelet Volume 6.9; Monocytes # (A) 0.3 k/uL (0-1.0); Monocytes % (A) 5 %; Neutrophils # (A) 4.3 k/uL (1.3-7.7); Neutrophils % (A) 68 %; Platelet Count 260 k/uL (150-450); RBC 5.22 m/uL (4.30-5.90); RDW 14.3 % (11.5-15.5); WBC 6.3 k/uL (3.8-10.6)
[2023-10-16 14:14] LABS: African American GFR (CKD) 73 (>60 ml/min/1.73 sqM); Anion Gap 8 mmol/L; Blood Urea Nitrogen 11 mg/dL (9-20); Calcium 9.4 mg/dL (8.4-10.2); Carbon Dioxide 27 mmol/L (22-30); Chloride 107 mmol/L (98-107); Glucose 101 mg/dL (74-99); Non-African American GFR(CKD) 63 (>60 ml/min/1.73 sqM); Potassium 3.5 mmol/L (3.5-5.1); Sodium 142 mmol/L (137-145)
[2023-10-16] MEDS ORDERED: PROPOFOL 10 MG/ML 20 ML VIAL IV ONE (14:21)
[2023-10-16] MEDS ORDERED: LIDOCAINE 1% INJ 10MG/ML (20 ML MDV) ONE (14:21)
[2023-10-16] MEDS: BENZOCAINE SPRAY 1 CAN TOPICAL ONE (14:25)
[2023-10-16 14:53] VITALS: TEMP 97.8
[2023-10-16 15:09] LABS: Glucose,Whole Blood 85 mg/dL (70-110)
[2023-10-16 15:26] LABS: Glucose,Whole Blood 76 mg/dL (70-110)
[2023-10-16 16:50] VITALS: BP 117/78; PULSE 54; RESP 18
--- NOTE | 2023-10-17 00:58 | P.TEE ---
Description of Procedure(s): Procedure performed: Transesophageal Echocardiogram with color flow doppler, pulsed wave doppler and continuous wave doppler, synchronized cardioversion Moderate conscious sedation: Moderate conscious sedation was supplied by anesthesia, see separate report. Complications: none Indications: Afib PROCEDURE: After the risks, benefits and alternatives of the above mentioned procedure was explained in detail with the patient, informed consent was obtained. Patient was brought to the lab in a fasting state. Patient was given sedation by anesthesia, see separate report. The throat was sprayed with Hurricane to anesthetize the throat. A lubricated Omni probe was then introduced into the esophagus and stomach and multiple views were obtained. 2D echo with color flow doppler, pulsed wave doppler and continuous wave doppler was utilized. Agitated saline bubbles were injected to assess for any intra- atrial shunt. The probe was then removed. There was no thrombus noted and therefore patient underwent synchronized cardioversion x 1 with 200J with resultant sinus rhythm. Patient tolerated the procedure well. Patient was transferred to the post procedure area in stable and satisfactory condition. FINDINGS: 1. The aortic valve is tricupid with normal function 2. The mitral valve appears be normal with mild regurgitation. 3. Tricuspid valve appears to be normal. 4. The interatrial septum is intact. No evidence of PFO. 5. Left atrial appendage is free of clot. 6. Left ventricular EF 50%
== END 2023-10-16 16:15 | disposition home or self-care (01) ==
LOC: OR 12:55
PROVIDERS: ATTEND Internal Medicine
DX: I34.0 Nonrheumatic mitral (valve) insufficiency (principal); I48.19 Other persistent atrial fibrillation; I25.10 Atherosclerotic heart disease of native coronary artery without angina pectoris; E11.9 Type 2 diabetes mellitus without complications; Z79.01 Long term (current) use of anticoagulants; Z79.899 Other long term (current) drug therapy
CPT/HCPCS: 93312; 93320; 93325; 92960; 80048; 85025; J2001; J2704

== ENCOUNTER 2023-12-22 09:26 | Day surgery (SDC) | payer OTHER ==
[2023-09-03 15:56] VITALS: BMI 29.5
[~2023-12-22 09:26] MED LIST changes: -DIPH,PERTUS(ACELL)TETVAC-LF 0.5 ML VIAL IM ONE; +LACTATED RINGERS 1,000 ML IV SCH
[2023-12-22 09:49] VITALS: TEMP 98
[2023-12-22] MEDS: LACTATED RINGERS 1,000 ML IV SCH (09:56)
[2023-12-22] MEDS: IV FLUID CONTINUATION 1,000 ML IV ONE (09:57)
[2023-12-22 09:58] LABS: Glucose,Whole Blood 89 mg/dL (70-110)
[2023-12-22] MEDS ORDERED: PROPOFOL 10 MG/ML 20 ML VIAL IV ONE (10:36)
--- NOTE | 2023-12-22 10:38 | P.GSHP ---
History of Present Illness H&P Date: 12/22/23 Chief Complaint: Colon cancer screening 57-year-old male here for colonoscopy. He has not had 1 previously. No bowel complaints. Family history of colon cancer in a grandparent. Past Medical History Past Medical History: Atrial Fibrillation, Diabetes Mellitus, Hyperlipidemia, Hypertension, Myocardial Infarction ([place]), Sleep Apnea/CPAP/BIPAP Additional Past Medical History / Comment(s): Kidney stones, uses cpap allergies. 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 Past Anesthesia/Blood Transfusion Reactions: No Reported Reaction Additional Past Anesthesia/Blood Transfusion Reaction / Comment(s): No hx blood transfusion. Smoking Status: Never smoker - Past Family History Mother Family Medical History: No Reported History Medications and Allergies Home Medications Medication Instructions Recorded Confirmed Type amLODIPine [Norvasc] 10 mg PO HS 10/18/15 12/22/23 History lisinopriL 40 mg PO HS 10/18/15 12/22/23 History Metoprolol Succinate (ER) [Toprol 50 mg PO HS 06/10/16 12/22/23 History Xl] Atorvastatin [Lipitor] 10 mg PO HS 10/05/17 12/22/23 History HYDROcodone/APAP 10-325MG [[place] 1 tab PO BID PRN 10/05/17 12/22/23 History 10-325] Pregabalin [Lyrica] 200 mg PO BID 10/05/17 12/22/23 History Tamsulosin [Flomax] 0.4 mg PO HS 10/05/17 12/22/23 History cloNIDine HCL [Catapres] 0.3 mg PO HS 10/14/17 12/22/23 History Dapagliflozin Propanediol [Farxiga] 10 mg PO QAM 09/03/23 12/22/23 History Montelukast Sodium 10 mg PO HS 09/03/23 12/22/23 History Apixaban [Eliquis] 5 mg PO BID 10/14/23 12/22/23 History Allergies Allergy/AdvReac Type Severity Reaction Status Date / Time No Known Allergies Allergy Verified 12/22/23 09:49 Surgical - Exam Vital Signs Temp Pulse Resp BP Pulse Ox 98.0 F 61 18 131/80 100 12/22/23 09:44 12/22/23 09:44 12/22/23 09:44 12/22/23 09:44 12/22/23 09:44 Physical exam: General: Well-developed, well-nourished HEENT: Normocephalic, sclerae nonicteric Abdomen: Nontender, nondistended Extremities: No edema Neuro: Alert and oriented Assessment and Plan (1) Colon cancer screening Narrative/Plan: Will proceed with colonoscopy at this time. Current Visit: Yes Status: Acute Code(s): Z12.11 - ENCOUNTER FOR SCREENING FOR MALIGNANT NEOPLASM OF COLON SNOMED Code(s): 067243409
--- NOTE | 2023-12-22 10:48 | P.PCN ---
Date of Procedure: 12/22/23 Procedure(s) Performed: PREOPERATIVE DIAGNOSIS: Colon cancer screening POSTOPERATIVE DIAGNOSIS: Normal exam PROCEDURE: Colonoscopy ANESTHESIA: MAC SURGEON: Benjamín Ovalle M.D. SPECIMENS: None ENDOSCOPIC PROCEDURE: The patient was placed on the endoscopy table in the left decubitus position. The Olympus colonoscope was inserted into the anus and passed under direct visualization to the base of the cecum. The appendiceal orifice was visualized. From that point the scope was slowly withdrawn inspecti ng all surfaces carefully. There were no neoplastic inflammatory or polypoid lesions throughout the cecum, ascending, transverse, descending, sigmoid and rectum. There was no visible diverticulosis noted. The patient's prep was suboptimal with some retained solid and liquid stool seen throughout the colon. This limited the visualization slightly. Digital rectal examination was normal. The patient was taken to the recovery room in stable condition per anesthesia guidelines. RECOMMENDATIONS: Resume diet. Repeat colonoscopy 5 to 10 years.
[2023-12-22 11:02] VITALS: RESP 16
[2023-12-22 11:10] VITALS: BP 119/72; PULSE 52
== END 2023-12-22 11:27 | disposition home or self-care (01) ==
LOC: ORWHC2ENDO 09:26
PROVIDERS: ATTEND Surgery
DX: Z12.11 Encounter for screening for malignant neoplasm of colon (principal); E11.9 Type 2 diabetes mellitus without complications; E78.5 Hyperlipidemia, unspecified; I10 Essential (primary) hypertension; I25.2 Old myocardial infarction; I48.91 Unspecified atrial fibrillation; J45.909 Unspecified asthma, uncomplicated; G47.33 Obstructive sleep apnea (adult) (pediatric); Z79.01 Long term (current) use of anticoagulants; Z79.84 Long term (current) use of oral hypoglycemic drugs; Z80.0 Family history of malignant neoplasm of digestive organs; Z87.442 Personal history of urinary calculi; Z79.899 Other long term (current) drug therapy
CPT/HCPCS: 45378; J2704

== ENCOUNTER → 2024-03-09 | Outpatient (CLI) | payer OTHER ==
[2024-03-09 18:24] LABS: HCT 44.2 % (39.6-50.0); HGB 14.4 g/dL (13.0-17.0); MCH 27.1 pg (27.0-32.0); MCHC 32.6 g/dL (32.0-37.0); MCV 83.1 FL (80.0-97.0); Mean Platelet Volume 9.4 FL (9.5-12.2); NRBC Per 100 WBC 0 X 10*3/uL (0.00-0.01); Platelet Count 253 X 10*3/uL (140-440); RBC 5.32 X 10*6/uL (4.40-5.60); RDW 14.6 % (11.5-14.5); WBC 6.65 X 10*3/uL (4.50-10.00)
[2024-03-09 19:04] LABS: Blood Urea Nitrogen 7.8 mg/dL (9.0-27.0); Carbon Dioxide 27.7 mmol/L (21.6-31.8); Chloride 102 mmol/L (96-109); Potassium 3.5 mmol/L (3.5-5.5); Sodium 141 mmol/L (135-145)
== END | disposition home or self-care (01) ==
LOC: LABPAT 14:04
PROVIDERS: ATTEND Internal Medicine Clinical Cardiac Electrophysiology
DX: Z01.812 Encounter for preprocedural laboratory examination (principal); I48.19 Other persistent atrial fibrillation
CPT/HCPCS: 36415; 80051; 82565; 84520; 85027

== ENCOUNTER 2024-03-29 07:32 | Day surgery (SDC) | payer OTHER ==
[2024-03-25 09:59] VITALS: BMI 29.5
[2024-03-29] MEDS: IV FLUID CONTINUATION 1,000 ML IV ONE (08:03)
[2024-03-29] MEDS: SODIUM CHLORIDE 0.9% 1,000 ML IV SCH (08:03)
[2024-03-29 08:44] LABS: ALT 17 U/L (4-49); AST 29 U/L (17-59); African American GFR (CKD) >90 (>60 ml/min/1.73 sqM); Albumin 4.4 g/dL (3.5-5.0); Alkaline Phosphatase 68 U/L (38-126); Anion Gap 6 mmol/L; Blood Urea Nitrogen 8 mg/dL (9-20); Calcium 9.2 mg/dL (8.4-10.2); Carbon Dioxide 32 mmol/L (22-30); Chloride 104 mmol/L (98-107); Glucose 102 mg/dL (74-99); Non-African American GFR(CKD) >90 (>60 ml/min/1.73 sqM); Potassium 3.4 mmol/L (3.5-5.1); Sodium 142 mmol/L (137-145); Total Bilirubin 0.6 mg/dL (0.2-1.3); Total Protein 7.4 g/dL (6.3-8.2)
[2024-03-29] MEDS ORDERED: PHENYLEPHRINE 10 MG/ML VIAL ONE (09:25)
[2024-03-29] MEDS ORDERED: PROPOFOL 10 MG/ML 20 ML VIAL IV ONE (09:25)
[2024-03-29] MEDS ORDERED: fentaNYL (PF) 50 MCG/ML 2 ML AMP ONE (09:25)
[2024-03-29] MEDS ORDERED: LIDOCAINE 1% INJ 10MG/ML (20 ML MDV) ONE (09:25)
[2024-03-29] MEDS ORDERED: ONDANSETRON 4 MG/2 ML VIAL ONE (09:25)
[2024-03-29] MEDS ORDERED: SUCCINYLCHOLINE CHLORIDE 200 MG/10 ML VIAL IV ONE (09:25)
[2024-03-29] MEDS ORDERED: ISOPROTERENOL 250 MCG/1.25 ML SYR IV ONE (09:25)
[2024-03-29] MEDS ORDERED: MIDAZOLAM 2 MG/2 ML VIAL ONE (09:25)
[2024-03-29] MEDS ORDERED: HEPARIN SODIUM,PORCINE 10,000 UNIT/ML 1 ML VIAL ONE (09:25)
[2024-03-29] MEDS ORDERED: FUROSEMIDE 10 MG/ML 2 ML VIAL ONE (09:25)
[2024-03-29] MEDS: HEPARIN SODIUM (1,000 UNIT/ML) 1,000 UNIT in SODIUM CHLORIDE 0.9% 1,000 ML IRRIGATION ONE (09:50)
[2024-03-29] MEDS: HEPARIN SOD,PORK IN 0.45% NACL 25,000 UNIT in 0.45% NACL 1 250ML.BAG IV ONE (09:51)
[2024-03-29] MEDS: LIDOCAINE 1% INJ 10MG/ML (20 ML MDV) SQ ONE (10:13)
[2024-03-29] MEDS: IOPAMIDOL-370 100ML BTL INJ ONE (11:56)
[2024-03-29] MEDS ORDERED: ACETAMINOPHEN TAB 325 MG TAB PO PRN (13:47)
--- NOTE | 2024-03-29 13:56 | P.HPCAR ---
History of Present Illness This is Dr. Al dictating an H/P on this patient The patient was interviewed and examined IMPRESSION / ASSESSMENT: Persistent atrial fibrillation, longstanding, with symptoms of tiredness fatigue and lack of energy Treated with amiodarone initially but stopped on account of shortness of breath Normal coronary arteries Frequent PVCs Preserved LV systolic function Left atrial enlargement Hypertension Underlying sick sinus syndrome Diabetes type 2 hemoglobin A1c 6.6 Normal TSH transfer tech PLAN: Proceed with A-fib ablation Continue anticoagulation Following that watch for evidence for sick sinus syndrome Continue valsartan and discontinue lisinopril and clonidine Denies any angina syncope fever chills cough expectoration HPI Patient is doing well in the last 1 to 2 weeks without any chest discomfort dizz iness loss of consciousness He has atrial fibrillation which has been very symptomatic. He has stopped taking amiodarone on account of bradycardia ROS: No fever chills or rigors, no cough, phlegm or expectoration, no nausea, vomiting or diarrhea, no hematuria, dysuria, no musculoskeletal complaints, no strokes or seizures, no skin lesions. EXAMINATION: Afebrile, pulse rate in the 50s, respirations normal, blood pressure 156/87 mmHg normal pulse ox Heart sounds are normal and regular Breath sounds are clear Abdomen is soft Extremities warm no edema REVIEW OF LABS, ECG & MEDICAL DATA Sodium 142 potassium 3.4 Bicarb 32, BUN 8 creatinine 0.9 Normal liver function test TSH 3.1 Physical Exam Vitals: Vital Signs Temp Pulse Pulse Resp BP BP Pulse Ox 03/29/24 13:44 97.4 F L 86 16 146/83 100 03/29/24 08:00 98.2 F 55 L 18 156/87 96 Intake and Output 03/28/24 03/29/24 03/29/24 22:59 06:59 14:59 Intake Total 1275 Balance 1275 Intake: IV 1275 Other: Weight 89.8 kg Past Medical History Past Medical History: Atrial Fibrillation, Diabetes Mellitus, Hyperlipidemia, Hypertension, Myocardial Infarction ([place]), Sleep Apnea/CPAP/BIPAP Additional Past Medical History / Comment(s): Kidney stones, uses cpap . 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 COLONOSCOPY Past Anesthesia/Blood Transfusion Reactions: No Reported Reaction Additional Past Anesthesia/Blood Transfusion Reaction / Comment(s): No hx blood transfusion. Smoking Status: Never smoker - Past Family History Mother Family Medical History: No Reported History Physical Examination Vital Signs Temp Pulse Pulse Resp BP BP Pulse Ox 03/29/24 13:44 97.4 F L 86 16 146/83 100 03/29/24 08:00 98.2 F 55 L 18 156/87 96 Intake and Output 03/28/24 03/29/24 03/29/24 22:59 06:59 14:59 Intake Total 1275 Balance 1275 Intake: IV 1275 Other: Weight 89.8 kg Results 03/29/24 07:45 Cardiac Enzymes 03/29/24 Range/Units 07:45 AST 29 (17-59) U/L Comprehensive Metabolic Panel 03/29/24 Range/Units 07:45 Sodium 142 (137-145) mmol/L Potassium 3.4 L (3.5-5.1) mmol/L Chloride 104 (98-107) mmol/L Carbon Dioxide 32 H (22-30) mmol/L BUN 8 L (9-20) mg/dL Creatinine 0.94 (0.66-1.25) mg/dL Glucose 102 H (74-99) mg/dL Calcium 9.2 (8.4-10.2) mg/dL AST 29 (17-59) U/L ALT 17 (4-49) U/L Alkaline Phosphatase 68 (38-126) U/L Total Protein 7.4 (6.3-8.2) g/dL Albumin 4.4 (3.5-5.0) g/dL Current Medications Generic Name Dose Route Start Last Admin Trade Name Freq PRN Reason Stop Dose Admin Acetaminophen 650 mg 03/29/24 13:47 Acetaminophen Tab 325 Mg Tab PO 04/28/24 13:46 Q6HR PRN Mild Pain (Scale 1 to 3) Amlodipine Besylate 10 mg 03/29/24 21:00 Amlodipine 10 Mg Tab PO 04/28/24 20:59 HS CEDRIC Apixaban 5 mg 03/29/24 21:00 Apixaban 5 Mg Tab PO 04/28/24 20:59 BID CEDRIC Protocol Atorvastatin Calcium 10 mg 03/29/24 21:00 Atorvastatin 10 Mg Tab PO 04/28/24 20:59 HS CEDRIC Dapagliflozin 10 mg 03/30/24 09:00 Dapagliflozin Propanediol 10 Mg Tablet PO 04/29/24 08:59 QAM CEDRIC Sodium Chloride 1,000 mls @ 20 mls/hr 03/29/24 06:07 03/29/24 08:03 Saline 0.9% IV 04/28/24 06:06 20 mls/hr .Q24H CEDRIC Administration Acetaminophen 1,000 mg/ IV 100 mls @ 400 mls/hr 03/29/24 13:47 Solution IVPB 03/29/24 14:01 ONCE ONE Metoprolol Succinate 50 mg 03/29/24 21:00 Metoprolol Succinate (Er) 100 Mg Tab.Er.24h PO 04/28/24 20:59 HS [facility] Montelukast Sodium 10 mg 03/29/24 21:00 Montelukast 10 Mg Tab PO 04/28/24 20:59 HS [facility] Non-Formulary Medication 200 mg 03/29/24 21:00 Pregabalin [Lyrica] PO 04/28/24 20:59 BID [facility] Sodium Chloride 12 ml 03/29/24 13:47 Sodium Chloride 0.9% Flush 10 Ml Syringe IV 04/28/24 13:46 Q12HR PRN Line Flush Tamsulosin HCl 0.4 mg 03/29/24 21:00 Tamsulosin 0.4 Mg Cap.Er.24h PO 04/28/24 20:59 HS [facility] Valsartan 160 mg 03/29/24 21:00 Valsartan 160 Mg Tab PO 04/28/24 20:59 HS [facility] Intake and Output 03/28/24 03/29/24 03/29/24 22:59 06:59 14:59 Intake Total 1275 Balance 1275 Intake: IV 1275 Other: Weight 89.8 kg Patient Weight 03/30/24 06:59 Weight 89.8 kg 03/29/24 07:45
--- NOTE | 2024-03-29 14:04 | P.EPPROC ---
- EP Procedure Note Electrophysiology Procedure Note: PROCEDURE A. fib ablation PVI, left atrial roof ablation left atrial septal ablation DIAGNOSIS Atrial fibrillation, symptomatic, refractory to therapy RESULT No left atrial appendage mass seen on intracardiac echo. Very large right-sided pulmonary veins and left inferior pulmonary vein. Complex right-sided pulmonary venous anatomy Successful A. fib ablation/pulmonary vein isolation of all veins using cryo- ablation at an antral level Complete entrance block in all 4 veins confirmed Left atrial roof ablation Left atrial septal ablation No evidence for phrenic nerve injury Esophageal deflection YES Electrical cardioversion with a synchronized shock across the chest YES PROCEDURE DETAILS Written informed consent prior to procedure. Patient brought to the EP lab. General anesthesia given. Heparin administered. A city maintained above 300 seconds Both groins prepped and draped per protocol and venous sheaths placed. Esophagus intubated, circa catheter for temperature monitoring an endoscope for possible esophageal deflection. Phrenic nerve monitoring performed. Esophageal temperature monitoring performed. Esophageal deflection performed if circa catheter overlapping with the balloon or circa temperature less than 27.5C Intracardiac echocardiography performed. Pericardium evaluated. Left atrial appendage evaluated. Left atrium evaluated along with pulmonary veins Transseptal catheterization performed under fluoroscopic guidance and intracardiac echo guidance Cryoablation sheath exchanged, balloon catheter along with achieve catheter placed in the left atrium. Pulmonary veins isolated in the following sequence: Left superior pulmonary vein followed by left inferior pulmonary vein, followed by right inferior pulmonary vein and lastly right superior pulmonary vein. Phrenic nerve stimulation along with capture thresholds within the SVC and right superior pulmonary vein to identify the phrenic nerve proximity to the cryo- balloon. Pulmonary veins isolated and confirmed with entrance and exit block. Phrenic nerve integrity confirmed at the end of the procedure Ablation of the left atrial roof performed with sequential lesions from the left superior to the right superior pulmonary veins. Ablation of the electrograms confirmed Ablation of the left atrial septum performed with cannulation of the superior branch of the right inferior and the inferior branch of the right superior vein to achieve ablation of the posterior septum of the left atrium. Ablation of electrograms confirmed Diagnostic catheters for the high right atrium, His bundle, coronary sinus placed. LA and RA pressures recorded RA pressure: 4/0/1 LA pressure: 6 Diagnostic EP study with coronary sinus pacing and recording Baseline measurements: Sinus cycle length 642 ms, FL interval 116, QRS 112 and QT 324 ms Age 44 and HV interval 54 ms Sinus node recovery times were 984, 995 and 1021 ms Venous sheaths were removed and hemostasis assured with a closure device. Patient extubated and transferred to recovery Increase procedural time During ablation multiple attempts had to be made to move the esophagus a safe distance of the from the pulmonary vein draining cryoablation, to avoid excessive thermal cooling of the esophagus This took extra time and effort to keep the esophagus a safe distance away from the cryoablation balloon. Very large pulmonary veins especially on the right side and the left inferior veins. Multiple attempts needed for successful cryoablation isolation of the pulmonary vein. Complex right-sided venous anatomy requiring multiple shorter ablations for an antral level isolation PROCEDURES PERFORMED Diagnostic EP study CS pacing and recording Left and right transseptal catheterization Catheter the mapping of the tachycardia Intracardiac echocardiography Pulmonary vein isolation with transseptal and comprehensive EPS, 13075 Extended procedure duration Drug infusion, +92550 Left atrial roof line, +[id number] Linear ablation, left atrium, +[id number]
[2024-03-29 15:05] LABS: Glucose,Whole Blood 110 mg/dL (70-110)
[2024-03-29] MEDS: ACETAMINOPHEN IV (For NPO) 1,000 MG in EMPTY BAG 1 BAG IVPB ONE (15:57)
[2024-03-29 17:08] LABS: Glucose,Whole Blood 99 mg/dL (70-110)
[2024-03-29] MEDS: VALSARTAN 160 MG TAB PO SCH (20:16)
[2024-03-29] MEDS: amLODIPine 10 MG TAB PO SCH (20:16)
[2024-03-29] MEDS: APIXABAN 5 MG TAB PO SCH (20:16)
[2024-03-29] MEDS: ATORVASTATIN 10 MG TAB PO SCH (20:16)
[2024-03-29] MEDS: METOPROLOL SUCCINATE (ER) 50 MG TAB.ER.24H PO SCH (20:16)
[2024-03-29] MEDS: TAMSULOSIN 0.4 MG CAP.ER.24H PO SCH (20:16)
[2024-03-29] MEDS: MONTELUKAST 10 MG TAB PO SCH (20:16)
[2024-03-29] MEDS: PREGABALIN 100 MG CAP PO SCH (20:16)
[2024-03-30 07:19] VITALS: BP 146/91; PULSE 96; RESP 16; TEMP 98.8
[2024-03-30] MEDS: DAPAGLIFLOZIN PROPANEDIOL 10 MG TABLET PO SCH (08:46)
--- NOTE | 2024-03-30 10:09 | P.DS ---
Providers Attending physician: Johnathan Al Primary care physician: Rambo Jara [facility] Course: Patient is doing well. He has mild tenderness in the right groin but there is no hematoma Heart sounds are normal Breath sounds are clear No JVD He has a mild sore throat but much better since yesterday No chest discomfort, no inspiratory chest discomfort Impression Symptomatic atrial fibrillation status post A-fib ablation with PVI left atrial roof and left atrial septal ablation Plan Discharge home today Continue anticoagulation Continue cardiac medications Follow-up with Dr. Desouza [facility] Plan - Discharge Summary Discharge Rx Participant: Yes New Discharge Prescriptions: New RX: Valsartan 160 mg PO BID #180 tab Continue RX: amLODIPine [Norvasc] 10 mg PO HS RX: Metoprolol Succinate (ER) [Toprol XL] 50 mg PO HS RX: HYDROcodone/APAP 10-325MG [[place] 10-325] 1 tab PO BID PRN PRN Reason: Pain RX: Tamsulosin [Flomax] 0.4 mg PO HS RX: Atorvastatin [Lipitor] 10 mg PO HS RX: Pregabalin [Lyrica] 200 mg PO BID RX: Montelukast Sodium 10 mg PO HS RX: Dapagliflozin Propanediol [Farxiga] 10 mg PO QAM RX: Apixaban [Eliquis] 5 mg PO BID Discontinued RX: lisinopriL 40 mg PO HS RX: Valsartan 160 mg PO HS Discharge Medication List RX: amLODIPine [Norvasc] 10 mg PO HS 10/18/15 [History] RX: Metoprolol Succinate (ER) [Toprol XL] 50 mg PO HS 06/10/16 [History] RX: Atorvastatin [Lipitor] 10 mg PO HS 10/05/17 [History] RX: HYDROcodone/APAP 10-325MG [[place] 10-325] 1 tab PO BID PRN 10/05/17 [History] RX: Pregabalin [Lyrica] 200 mg PO BID 10/05/17 [History] RX: Tamsulosin [Flomax] 0.4 mg PO HS 10/05/17 [History] RX: Dapagliflozin Propanediol [Farxiga] 10 mg PO QAM 09/03/23 [History] RX: Montelukast Sodium 10 mg PO HS 09/03/23 [History] RX: Apixaban [Eliquis] 5 mg PO BID 10/14/23 [History] RX: Valsartan 160 mg PO BID #180 tab 03/29/24 [Rx] Follow up Appointment(s)/Referral(s): Efrain Desouza DO [STAFF PHYSICIAN] - 1 Week Activity/Diet/Wound Care/Special Instructions: Post EP study - Ablation instructions 1. Keep access sites dry for 2 days. 2. No heavy lifting or straining for 2 days. 3. Avoid bending the hips repeatedly for 2 days. 4. You may go up and down stairs slowly Call if the following is noted 1. Bleeding, increasing swelling or pain at the access sites. 2. Increasing chest discomfort, especially upon taking a deep breath. 3. Increasing shortness of breath, at rest or with exertion. 4. Undue cough / phlegm 5. Difficulty or pain while swallowing. 6. Pain or change in color in the extremities. 7. Fever, chills, rigors. 8. Increasing headache or neurologic symptoms. 9. Dizziness, fainting, palpitations Continue Eliquis Stop clonidine Stop lisinopril Discharge Disposition: HOME SELF-CARE
== END 2024-03-30 11:31 | disposition home or self-care (01) ==
LOC: CATHEP 07:32 → 6NMEDSUR 13:00 → CATHEP 03-30 11:31
PROVIDERS: ATTEND Internal Medicine Clinical Cardiac Electrophysiology
DX: I48.91 Unspecified atrial fibrillation (principal); E11.9 Type 2 diabetes mellitus without complications; E78.5 Hyperlipidemia, unspecified; G47.30 Sleep apnea, unspecified; I10 Essential (primary) hypertension; I25.2 Old myocardial infarction; I49.5 Sick sinus syndrome; Z79.01 Long term (current) use of anticoagulants; Z79.84 Long term (current) use of oral hypoglycemic drugs; Z87.442 Personal history of urinary calculi; Z79.899 Other long term (current) drug therapy
CPT/HCPCS: 80053; 84443; 86850; 86900; 86901; 93005; 93656; 93657

== ENCOUNTER → 2024-09-12 | Outpatient (CLI) | payer OTHER ==
--- NOTE | 2024-09-12 13:24 | XR ---
EXAMINATION TYPE: XR knee limited LT DATE OF EXAM: 09/12/2024 1:06 PM COMPARISON: 11/06/2015 CLINICAL INDICATION: Male, 58 years old with history of M25.562 L knee pain, pain TECHNIQUE: XR knee limited LT XX views were obtained. FINDINGS: There is no acute fracture/dislocation. Severe degenerative changes patellofemoral joint space with s uperior and inferior patellar pole spurring. Small joint effusion. The overlying soft tissue appears unremarkable. IMPRESSION: No acute fracture or dislocation [facility], , 09/12/2024 1:22 PM
== END | disposition home or self-care (01) ==
LOC: RADXRMAIN 12:47
PROVIDERS: ATTEND Internal Medicine
DX: M17.12 Unilateral primary osteoarthritis, left knee (principal)